=== PATIENT | female | born 1960 | race Caucasian/White ===

== ENCOUNTER 2018-04-06 16:45 | Emergency (ER) | payer OTHER, SELFPAY ==
[2018-04-06 17:25] LABS: Clarity Clear (Clear); Glucose, Urine (Dipstick) Negative (Negative); Leukocyte Negative (Negative); Nitrite Negative (Negative); Protein, Urine (Dipstick) Negative (Neg-Trace); Specific Gravity, Urine 1.015 (1.005-1.030); Urobilinogen 0.2 mg/dL (0.2-1.0)
[2018-04-06 17:26] LABS: Bacteria/HPF Rare-Few HPF (None Seen); Bilirubin Negative (Negative); Blood, Urine Trace (Negative); RBC/HPF 0-3 HPF (0-3); Squamous Epithelial 0-3 HPF (0-3); WBC/HPF 0-3 HPF (0-3)
[2018-04-06 17:39] LABS: Amphetamine Not Detected (NotDetected); Barbiturates Screen Not Detected (NotDetected); Benzodiazepine Screen Not Detected (NotDetected); Cocaine Metabolite Screen Not Detected (NotDetected); Medtox Control Line Valid? VALID (VALID); Methadone Not Detected (NotDetected); Methamphetamine Not Detected (NotDetected); Opiate Screen Not Detected (NotDetected); Oxycodone Screen Not Detected (NotDetected); Phencyclidine (PCP) Not Detected (NotDetected); THC/Cannabinoid Screen Detected (NotDetected); Tricyclic Screen Not Detected (NotDetected)
[2018-04-06 17:40] LABS: #Basophils 0.1 thou/uL (0.0-0.2); #Eosinphils 0.4 thou/uL (0.0-0.7); #Lymphocytes 2.3 thou/uL (1.20-3.40); #Monocytes 0.5 thou/uL (0.11-0.59); %Basophils 1.6 % (0.0-1.0); %Eosinophils 5.9 % (0.0-10.0); %Lymphocytes 30.8 % (21.0-51.0); %Monocytes 6.7 % (0.0-10.0); Hemoglobin 14.1 g/dL (12.0-16.0); Mean Corpuscular HGB CONC 33.9 g/dL (32.0-36.0); Mean Corpuscular Volume 88.7 fL (78.0-98.0); Mean Platelet Volume 11.3 fL (7.4-10.4); Platelet Count 265 thou/uL (130-400); RBC Distribution Width 13.3 % (11.5-14.5); White Blood Cell (WBC) Count 7.4 thou/uL (4.8-10.8)
[2018-04-06 17:43] LABS: ALT (SGPT) 18 U/L (8-55); AST (SGOT) 22 U/L (5-34); Albumin 4.4 g/dL (3.5-5.0); Alcohol 283 mg/dL (Less than 10); Alkaline Phosphatase 85 U/L (40-150); Anion Gap 14 mmol/L (10-20); BUN (Urea Nitrogen) 14 mg/dL (9.8-20.1); Bilirubin, Total Less than 0.2 mg/dL (0.2-1.2); Calc. Creatinine Clearance 0 mL/min (70-130); Calcium 9.8 mg/dL (7.8-10.44); Carbon Dioxide 30 mmol/L (22-29); Chloride 108 mmol/L (98-107); Estimated GFR-MDRD 86; Glucose 103 mg/dL (70-105); Protein, Total 7.4 g/dL (6.0-8.3); Sodium 148 mmol/L (136-145)
--- NOTE | 2018-04-06 23:03 | CT ---
CT OF THE BRAIN WITHOUT CONTRAST 04/06/[address] was performed following trauma. Comparison is made with a 10/22/13 study. The ventricles are normal in size with no shift. No intracranial bleeding or extra-axial hematoma was seen. There is probably a small lacunar infarct or two in the basal ganglia bilaterally. No acute st roke or edema was seen. On scan 10, there is a rounded density inside the inner table of the left frontal bone just above the orbit. This is most likely volume averaging with the bone below. A small meningioma seems less likel y. While this was not a spiral scan, so the coronal reconstruction done is of very limited quality. T here was nothing on it to suggest a small mass in this location. This area is not evident on the prio r study, but the scan slices were not in the same spot. IMPRESSION: 1. No acute traumatic findings. 2. Mild chronic ischemic changes including a few tiny lacunar infarcts in the basal ganglia. 3. Small rounded density just above the left orbit that is most likely volume averaging. It woul d be unlikely that this could be a meningioma, though other images would be needed to be sure. I feel pretty strongly that this is most likely volume averaging. If one wanted to followup, you could do a n MRI or another CT in six to 12 months from now. Findings discussed with Dr. Weems at 1745 on 04/06/18. POS: HOME
--- NOTE | 2018-04-06 23:15 | CT ---
CT CERVICAL SPINE 04/06/[address] of the cervical spine was performed following trauma. Axial slices were acquired, then dulce nal and sagittal reconstructions were done. No fracture, dislocation, or acute bony change was seen. The soft tissues are normal in thickness and the C1 to dens distance is normal. There is disc space narrowing at all levels from C3 and below. Fi ndings by level follow: C1-C2: Unremarkable. C2-C3: Unremarkable. C3-C4: Bilateral facet arthritis with moderate right and severe left foraminal narrowing due to osteo phytes. C4-C5: Severe bilateral foraminal narrowing due to osteophytes. C5-C6: Moderate to severe bilateral foraminal narrowing. C6-C7: Some concentric disc osteophyte complex is seen posteriorly. There is moderate bilateral ariel inal narrowing. C7-T1: No acute findings. T1-T2: No acute findings. IMPRESSION: No acute cervical findings. Severe degenerative changes as noted. POS: HOME
== END 2018-04-06 18:01 | disposition home or self-care (01) ==
LOC: BURERS 16:45
DX: Z04.1 Encounter for examination and observation following transport accident (principal); F10.129 Alcohol abuse with intoxication, unspecified; F12.10 Cannabis abuse, uncomplicated; Z79.899 Other long term (current) drug therapy; V49.9XXA Car occupant (driver) (passenger) injured in unspecified traffic accident, initial encounter
CPT/HCPCS: 36415; 70450; 72125; 80053; 80306; 80307; 81003; 81015; 85025

== ENCOUNTER 2018-10-10 22:03 | Emergency (ER) | payer OTHER, SELFPAY ==
[2018-10-10] MEDS ORDERED: Lidocaine 2% PF 5 ML VIAL ONE ×2 (22:24→23:24)
[2018-10-10] MEDS ORDERED: cefTRIAXone\\ROCEPHIN 1 GM VIAL ONE (23:23)
== END 2018-10-10 23:52 | disposition home or self-care (01) ==
LOC: BURERS 22:03
DX: S61.211A Laceration without foreign body of left index finger without damage to nail, initial encounter (principal); W45.8XXA Other foreign body or object entering through skin, initial encounter
CPT/HCPCS: 12042; 96372; J0696; J2001

== ENCOUNTER 2022-07-25 20:04 | Inpatient (IN) | payer OTHER ==
[2022-07-25] MEDS ORDERED: Ondansetron PF 4 MG/2 ML Vial ONE (20:36)
[2022-07-25] MEDS ORDERED: Ketorolac Tromethamine 30 MG/ML VIAL ONE (20:36)
[2022-07-25 20:59] LABS: #Basophils 0.1 thou/uL (0.0-0.2); #Eosinphils 0.4 thou/uL (0.0-0.7); #Lymphocytes 0.7 thou/uL (1.20-3.40); #Monocytes 0.4 thou/uL (0.11-0.59); #Neutrophils 13.3 thou/uL (1.40-6.50); %Basophils 0.4 % (0.0-1.0); %Lymphocytes 4.4 % (21.0-51.0); %Monocytes 2.9 % (0.0-10.0); %Neutrophils 89.3 % (42.0-75.0); Hemoglobin 13.3 g/dL (12.0-16.0); Mean Corpuscular HGB CONC 32.1 g/dL (32.0-36.0); Mean Corpuscular Hemoglobin 27.8 pg (27.0-31.0); Mean Corpuscular Volume 86.7 fl (78.0-98.0); Mean Platelet Volume 8.9 fL (7.4-10.4); Platelet Count 303 10x3/uL (130-400); RBC Distribution Width 12.8 % (11.5-14.5); Red Blood Cell (RBC) Count 4.79 mill/uL (4.20-5.40); White Blood Cell (WBC) Count 14.9 10x3/uL (4.8-10.8)
[2022-07-25 21:18] LABS: ALT (SGPT) 31 U/L (8-55); AST (SGOT) 19 U/L (5-34); Alcohol Less than 10 mg/dL (Less than 10); Alkaline Phosphatase 78 U/L (40-110); Anion Gap 18 mmol/L (10-20); BUN (Urea Nitrogen) 11 mg/dL (9.8-20.1); Bilirubin, Total 0.6 mg/dL (0.2-1.2); CRP (Inflammatory) 8.26 mg/dL (= or < 0.5); Calc. Creatinine Clearance 0 mL/min (70-130); Calcium 9.9 mg/dL (7.8-10.44); Carbon Dioxide 20 mmol/L (23-31); Chloride 102 mmol/L (98-107); Estimated GFR 100; Globulin 3.2 g/dL (2.4-3.5); Glucose 98 mg/dL (80-115); Potassium 3.1 mmol/L (3.5-5.1); Protein, Total 7.2 g/dL (5.8-8.1); Sodium 137 mmol/L (136-145)
[2022-07-25 21:19] LABS: Magnesium 1.7 mg/dL (1.6-2.6)
[2022-07-25] MEDS ORDERED: Potassium Bicarbonate/Cit Ac 20 MEQ TAB PO SCH (22:00)
[2022-07-25] MEDS ORDERED: Ipratropium/Albuterol 3 ML NEB ONE (22:18)
[2022-07-25 22:30] LABS: Bilirubin Small (Negative); Blood, Urine Moderate (Negative); Clarity Clear (Clear); Glucose, Urine (Dipstick) Negative (Negative); Ketone, Urine > or equal to 80 mg/dL (Negative); Leukocyte Small (Negative); Nitrite Negative (Negative); Protein, Urine (Dipstick) 100 mg/dL (Neg-Trace); Urobilinogen 0.2 mg/dL (Less than 2)
[2022-07-25 22:31] LABS: Bacteria/HPF 1+ HPF (None Seen); Mucous/LPF 1+ LPF (<2+); Squamous Epithelial 0-3 HPF (0-3)
[2022-07-25 22:34] LABS: Lipase Less than 4 U/L (8-78)
[2022-07-25 22:36] LABS: Amphetamine Not Detected (NotDetected); Barbiturates Screen Not Detected (NotDetected); Benzodiazepine Screen Not Detected (NotDetected); Cocaine Metabolite Screen Not Detected (NotDetected); Methadone Not Detected (NotDetected); Methamphetamine Not Detected (NotDetected); Opiate Screen Detected (NotDetected); Oxycodone Screen Not Detected (NotDetected); Phencyclidine (PCP) Not Detected (NotDetected); THC/Cannabinoid Screen Detected (NotDetected); Tricyclic Screen Not Detected (NotDetected)
[2022-07-25 22:37] LABS: Medtox Control Line Valid? VALID (VALID)
[2022-07-25] MEDS ORDERED: Azithromycin 500 MG VIAL ONE (23:22)
[2022-07-25 23:23] LABS: SARS-CoV-2 NAA Rapid Test Not Detected (NotDetected)
[2022-07-26 00:40] VITALS: BMI 29.2
[2022-07-26] MEDS ORDERED: Ipratropium/Albuterol 3 ML NEB NEB PRN (02:50)
[2022-07-26] MEDS ORDERED: Ondansetron PF 4 MG/2 ML Vial IVP PRN (03:00)
[2022-07-26] MEDS ORDERED: Ondansetron ODT 4 MG TAB SL PRN (03:00)
[2022-07-26] MEDS ORDERED: Acetaminophen 325 MG TAB PO PRN (03:00)
[2022-07-26] MEDS: NS 0.9% w/ 20 MEQ KCL 1,000 ML IV SCH ×2 (03:15→11:17)
[2022-07-26] MEDS: cloNIDine 0.1 MG TAB PO SCH ×2 (10:20→21:33)
[2022-07-26] MEDS: Losartan Potassium 50 MG TAB PO SCH (10:24)
[2022-07-26] MEDS: PARoxetine 20 MG TAB PO SCH (10:24)
[2022-07-26] MEDS: Multivitamin W/ Minerals 1 TAB PO SCH (10:24)
[2022-07-26] MEDS: Ipratropium/Albuterol 3 ML NEB NEB SCH ×4 (16:14→23:18)
[2022-07-26] MEDS: Rosuvastatin 10 MG TAB PO SCH (21:33)
[2022-07-27 05:08] LABS: White Blood Cell (WBC) Count 7.6 10x3/uL (4.8-10.8)
[2022-07-27 05:15] LABS: Potassium 3.8 mmol/L (3.5-5.1)
[2022-07-27] MEDS: Ipratropium/Albuterol 3 ML NEB NEB SCH ×5 (06:19→23:12)
[2022-07-27] MEDS ORDERED: Ondansetron ODT 4 MG TAB PO PRN (10:40)
[2022-07-27] MEDS: PARoxetine 20 MG TAB PO SCH (12:18)
[2022-07-27] MEDS: cloNIDine 0.1 MG TAB PO SCH ×2 (12:18→20:46)
[2022-07-27] MEDS: Multivitamin W/ Minerals 1 TAB PO SCH (12:19)
[2022-07-27] MEDS: Losartan Potassium 50 MG TAB PO SCH (12:19)
[2022-07-27] MEDS: Rosuvastatin 10 MG TAB PO SCH (20:47)
[2022-07-28] MEDS: Ipratropium/Albuterol 3 ML NEB NEB SCH ×3 (06:07→15:27)
[2022-07-28] MEDS: Losartan Potassium 50 MG TAB PO SCH (08:42)
[2022-07-28] MEDS: PARoxetine 20 MG TAB PO SCH (08:43)
[2022-07-28] MEDS: Multivitamin W/ Minerals 1 TAB PO SCH (08:43)
[2022-07-28] MEDS: cloNIDine 0.1 MG TAB PO SCH (08:43)
[2022-07-28] MEDS ORDERED: Senokot 8.6 MG TAB PO SCH (12:15)
[2022-07-28 14:24] VITALS: BP 181/93; TEMP 98
== END 2022-07-28 17:50 | disposition home or self-care (01) | DRG 193 ==
LOC: BURERS 20:04 → BURMED 23:00
PROVIDERS: ADMIT Family Medicine; ATTEND Family Medicine
DX: J18.9 Pneumonia, unspecified organism (principal); J96.01 Acute respiratory failure with hypoxia; N39.0 Urinary tract infection, site not specified; N20.0 Calculus of kidney; E86.0 Dehydration; Z20.822 Contact with and (suspected) exposure to COVID-19; E87.6 Hypokalemia; I10 Essential (primary) hypertension; F41.9 Anxiety disorder, unspecified; F32.A Depression, unspecified; Z79.899 Other long term (current) drug therapy; Z88.0 Allergy status to penicillin; M25.512 Pain in left shoulder
CPT/HCPCS: 36415; 71045; 74176; 80053; 80306; 80307; 81003; 81015; 83690; 83735; 84132; 85025; 85048; 86140; 87040; 96365; 96375; J0456; J1885; J1956; J2405; J3480; J7620; Q0162; U0002

== ENCOUNTER 2022-09-04 14:29 | Outpatient (CLI) | payer OTHER | END 2022-09-04 14:30 | disposition home or self-care (01) | LOC: BURRAD 14:29 | PROVIDERS: ATTEND Family Medicine | DX: J18.9 Pneumonia, unspecified organism (principal) | CPT/HCPCS: 71046 ==

== ENCOUNTER 2022-12-22 13:14 | Emergency (ER) | payer OTHER ==
[2022-12-22] MEDS ORDERED: Ondansetron PF 4 MG/2 ML Vial ONE (13:36)
[2022-12-22 13:40] LABS: #Eosinphils 0.1 thou/uL (0.0-0.7); #Lymphocytes 1.3 thou/uL (1.20-3.40); #Monocytes 0.3 thou/uL (0.11-0.59); #Neutrophils 5.4 thou/uL (1.40-6.50); %Basophils 0.5 % (0.0-1.0); %Lymphocytes 18.8 % (21.0-51.0); %Monocytes 3.7 % (0.0-10.0); Hematocrit 43.7 % (36.0-47.0); Mean Corpuscular HGB CONC 31.9 g/dL (32.0-36.0); Mean Corpuscular Hemoglobin 27.6 pg (27.0-31.0); Mean Corpuscular Volume 86.5 fl (78.0-98.0); Platelet Count 264 10x3/uL (130-400); RBC Distribution Width 12.6 % (11.5-14.5); Red Blood Cell (RBC) Count 5.05 mill/uL (4.20-5.40); White Blood Cell (WBC) Count 7.2 10x3/uL (4.8-10.8)
[2022-12-22 13:58] LABS: ALT (SGPT) 57 U/L (8-55); AST (SGOT) 51 U/L (5-34); Albumin 4.7 g/dL (3.4-4.8); Alkaline Phosphatase 83 U/L (40-110); Anion Gap 19 mmol/L (10-20); BUN (Urea Nitrogen) 12 mg/dL (9.8-20.1); Bilirubin, Total 0.5 mg/dL (0.2-1.2); Calc. Creatinine Clearance 0 mL/min (70-130); Calcium 10.5 mg/dL (7.8-10.44); Carbon Dioxide 24 mmol/L (23-31); Chloride 104 mmol/L (98-107); Estimated GFR 98; Globulin 3.3 g/dL (2.4-3.5); Glucose 126 mg/dL (80-115); Lipase 7 U/L (8-78); Potassium 3.4 mmol/L (3.5-5.1); Sodium 144 mmol/L (136-145)
[2022-12-22 14:54] LABS: Bilirubin Negative (Negative); Blood, Urine Moderate (Negative); Clarity Cloudy (Clear); Glucose, Urine (Dipstick) Negative (Negative); Ketone, Urine 15 mg/dL (Negative); Leukocyte Small (Negative); Nitrite Negative (Negative); Protein, Urine (Dipstick) 100 mg/dL (Neg-Trace); Specific Gravity, Urine 1.015 (1.005-1.030); Urobilinogen 0.2 mg/dL (Less than 2); pH, Urine 8.5 (5.0-9.0)
[2022-12-22 15:08] LABS: Bacteria/HPF 2+ HPF (None Seen); CAUTI Indications for Culture Dysuria,urgency,freq; RBC/HPF 21-50 HPF (0-3); Squamous Epithelial 0-3 HPF (0-3); WBC/HPF 0-3 HPF (0-3)
[2022-12-22 15:10] LABS: Urine Culture Reflex No No
[2022-12-22 15:22] LABS: SARS-CoV-2 NAA Rapid Test Not Detected (NotDetected)
== END 2022-12-22 16:33 | disposition home or self-care (01) ==
LOC: BURERS 13:14
DX: B34.9 Viral infection, unspecified (principal); R11.2 Nausea with vomiting, unspecified; I10 Essential (primary) hypertension; F17.290 Nicotine dependence, other tobacco product, uncomplicated; E78.5 Hyperlipidemia, unspecified; Z20.822 Contact with and (suspected) exposure to COVID-19; Z79.899 Other long term (current) drug therapy
CPT/HCPCS: 80053; 81001; 83605; 83690; 85025; 93005; 96361; 96374; J2405

== ENCOUNTER 2024-02-01 10:01 | Emergency (ER) | payer OTHER ==
[2024-02-01] MEDS ORDERED: Ondansetron PF 4 MG/2 ML Vial ONE (10:32)
[2024-02-01 10:36] LABS: #Basophils 0.1 thou/uL (0.0-0.2); #Eosinphils 0.4 thou/uL (0.0-0.7); #Lymphocytes 1.8 thou/uL (1.20-3.40); #Monocytes 0.5 thou/uL (0.11-0.59); #Neutrophils 3.4 thou/uL (1.40-6.50); %Basophils 1.4 % (0.0-1.0); %Eosinophils 5.8 % (0.0-10.0); %Lymphocytes 29.1 % (21.0-51.0); %Monocytes 8.1 % (0.0-10.0); %Neutrophils 55.6 % (42.0-75.0); Hematocrit 41.4 % (36.0-47.0); Hemoglobin 12.8 g/dL (12.0-16.0); Mean Corpuscular HGB CONC 30.8 g/dL (32.0-36.0); Mean Corpuscular Hemoglobin 27.6 pg (27.0-31.0); Mean Corpuscular Volume 89.7 fl (78.0-98.0); Mean Platelet Volume 10.2 fL (7.4-10.4); Platelet Count 289 10x3/uL (130-400); RBC Distribution Width 12.2 % (11.5-14.5); Red Blood Cell (RBC) Count 4.62 mill/uL (4.20-5.40); White Blood Cell (WBC) Count 6.1 10x3/uL (4.8-10.8)
[2024-02-01 10:53] LABS: ALT (SGPT) 46 U/L (8-55); AST (SGOT) 43 U/L (5-34); Alkaline Phosphatase 89 U/L (40-110); Anion Gap 17 mmol/L (10-20); BUN (Urea Nitrogen) 15 mg/dL (9.8-20.1); Bilirubin, Total 0.5 mg/dL (0.2-1.2); Calc. Creatinine Clearance 0 mL/min (70-130); Carbon Dioxide 23 mmol/L (23-31); Chloride 106 mmol/L (98-107); Estimated GFR 98; Globulin 3.6 g/dL (2.4-3.5); Glucose 84 mg/dL (80-115); Lipase 6 U/L (8-78); Potassium 3.4 mmol/L (3.5-5.1); Protein, Total 7.6 g/dL (5.8-8.1); Sodium 143 mmol/L (136-145)
[2024-02-01 11:40] LABS: Bilirubin Negative (Negative); Blood, Urine Moderate (Negative); Glucose, Urine (Dipstick) Negative (Negative); Ketone, Urine 40 mg/dL (Negative); Leukocyte Large (Negative); Nitrite Positive (Negative); Protein, Urine (Dipstick) 100 mg/dL (Neg-Trace); Specific Gravity, Urine 1.025 (1.005-1.030); Urobilinogen 0.2 mg/dL (Less than 2); pH, Urine 6.5 (5.0-9.0)
[2024-02-01 11:49] LABS: Clarity Cloudy (Clear)
[2024-02-01 11:50] LABS: Bacteria/HPF 2+ HPF (None Seen); CAUTI Indications for Culture Pelvic or flank pain; Squamous Epithelial 0-3 HPF (0-3); WBC/HPF Greater Than 50 HPF (0-3)
[2024-02-01 11:51] LABS: Urine Culture Reflex Yes Yes
[2024-02-01] MEDS ORDERED: Nitrofurantoin Monohyd/M-Cryst 100 MG CAP ONE (12:00)
== END 2024-02-01 12:10 | disposition home or self-care (01) ==
LOC: BURERS 10:01
DX: N39.0 Urinary tract infection, site not specified (principal); R11.2 Nausea with vomiting, unspecified; I10 Essential (primary) hypertension; Z86.73 Personal history of transient ischemic attack (TIA), and cerebral infarction without residual deficits
CPT/HCPCS: 36415; 80053; 81001; 83690; 85025; 87077; 87086; 87186; 87428; 96361; 96374; J2405

== ENCOUNTER 2024-02-02 01:01 | Emergency (ER) | payer OTHER ==
[2024-02-02] MEDS ORDERED: Promethazine HCl 25 MG/ML VIAL ONE ×2 (01:47→04:22)
[2024-02-02 01:53] LABS: #Basophils 0.1 thou/uL (0.0-0.2); #Eosinphils 0.2 thou/uL (0.0-0.7); #Lymphocytes 0.6 thou/uL (1.20-3.40); #Monocytes 0.3 thou/uL (0.11-0.59); #Neutrophils 14.1 thou/uL (1.40-6.50); %Basophils 0.5 % (0.0-1.0); %Eosinophils 1.2 % (0.0-10.0); %Lymphocytes 3.9 % (21.0-51.0); %Monocytes 1.8 % (0.0-10.0); %Neutrophils 92.7 % (42.0-75.0); Hematocrit 41.7 % (36.0-47.0); Hemoglobin 12.9 g/dL (12.0-16.0); Mean Corpuscular Hemoglobin 27.8 pg (27.0-31.0); Mean Corpuscular Volume 89.8 fl (78.0-98.0); Mean Platelet Volume 9.4 fL (7.4-10.4); Platelet Count 265 10x3/uL (130-400); RBC Distribution Width 12.5 % (11.5-14.5); Red Blood Cell (RBC) Count 4.64 mill/uL (4.20-5.40); White Blood Cell (WBC) Count 15.2 10x3/uL (4.8-10.8)
[2024-02-02 02:10] LABS: ALT (SGPT) 37 U/L (8-55); AST (SGOT) 29 U/L (5-34); Albumin 3.8 g/dL (3.4-4.8); Anion Gap 19 mmol/L (10-20); BUN (Urea Nitrogen) 10 mg/dL (9.8-20.1); Bilirubin, Total 0.6 mg/dL (0.2-1.2); Calc. Creatinine Clearance 0 mL/min (70-130); Calcium 9.8 mg/dL (7.8-10.44); Carbon Dioxide 19 mmol/L (23-31); Chloride 108 mmol/L (98-107); Estimated GFR 88; Globulin 3.5 g/dL (2.4-3.5); Glucose 136 mg/dL (80-115); Lipase 9 U/L (8-78); Potassium 2.8 mmol/L (3.5-5.1); Protein, Total 7.3 g/dL (5.8-8.1); Sodium 143 mmol/L (136-145)
[2024-02-02 02:12] LABS: Troponin I 0.012 ng/mL (< 0.028)
[2024-02-02 02:16] LABS: Alkaline Phosphatase 85 U/L (40-110)
[2024-02-02] MEDS ORDERED: Potassium Chloride 20 MEQ (100 mL) BAG ONE ×2 (02:46→09:55)
[2024-02-02] MEDS ORDERED: Ciprofloxacin Lactate D5W 400 mg (200 mL) BAG ONE (02:47)
[2024-02-02] MEDS ORDERED: Acetaminophen 500 MG TAB ONE (09:55)
[2024-02-02] MEDS ORDERED: CEFAZOLIN 2 GM VIAL ONE (09:55)
[2024-02-02] MEDS ORDERED: Sodium Chloride 0.9% 100 ML ONE (09:59)
[2024-02-02] MEDS ORDERED: Cefepime 2 GM VIAL ONE (09:59)
[2024-02-02 10:28] LABS: Anion Gap 15 mmol/L (10-20); BUN (Urea Nitrogen) 7 mg/dL (9.8-20.1); Calc. Creatinine Clearance 0 mL/min (70-130); Calcium 9.1 mg/dL (7.8-10.44); Carbon Dioxide 19 mmol/L (23-31); Chloride 108 mmol/L (98-107); Estimated GFR 97; Glucose 108 mg/dL (80-115); Magnesium 1.5 mg/dL (1.6-2.6); Potassium 3.2 mmol/L (3.5-5.1); Sodium 139 mmol/L (136-145)
[2024-02-02] MEDS ORDERED: Magnesium 2 GM/50 ML BAG (IN WATER) ONE (10:34)
[2024-02-02] MEDS ORDERED: Iopamidol 370 76% 100 ML VIAL ONE (15:21)
== END 2024-02-02 13:11 | disposition short-term general hospital (02) ==
LOC: BURERS 01:01
DX: N39.0 Urinary tract infection, site not specified (principal); E87.6 Hypokalemia; R11.2 Nausea with vomiting, unspecified; I10 Essential (primary) hypertension
CPT/HCPCS: 36415; 71045; 74177; 80053; 83605; 83690; 83735; 84484; 85025; 87040; 87428; 96361; 96365; 96366; 96367; 96368; 96375; 96376; J0692; J0744; J2550; J3475; J3480; Q9967

== ENCOUNTER 2024-02-18 20:22 | Emergency (ER) | payer OTHER ==
[2024-02-18] MEDS ORDERED: Ondansetron PF 4 MG/2 ML Vial ONE ×2 (21:25→23:46)
[2024-02-18] MEDS ORDERED: Ketorolac Tromethamine 30 MG (1 mL) VIAL ONE (21:25)
[2024-02-18 21:34] LABS: #Basophils 0.1 thou/uL (0.0-0.2); #Eosinophils 0.6 thou/uL (0.0-0.7); #Lymphocytes 2.1 thou/uL (1.20-3.40); #Monocytes 0.9 thou/uL (0.11-0.59); #Neutrophils 4.9 thou/uL (1.40-6.50); %Basophils 1.6 % (0.0-1.0); %Eosinophils 6.4 % (0.0-10.0); %Lymphocytes 24.2 % (21.0-51.0); %Monocytes 10.3 % (0.0-10.0); %Neutrophils 57.4 % (42.0-75.0); Mean Corpuscular HGB CONC 32.4 g/dL (32.0-36.0); Mean Corpuscular Hemoglobin 27.8 pg (27.0-31.0); Mean Corpuscular Volume 85.7 fl (78.0-98.0); Platelet Count 230 10x3/uL (130-400); RBC Distribution Width 11.5 % (11.5-14.5); Red Blood Cell (RBC) Count 4.67 mill/uL (4.20-5.40); White Blood Cell (WBC) Count 8.6 10x3/uL (4.8-10.8)
[2024-02-18 22:33] LABS: ALT (SGPT) 14 U/L (8-55); AST (SGOT) 16 U/L (5-34); Albumin 3.4 g/dL (3.4-4.8); Alkaline Phosphatase 59 U/L (40-110); Anion Gap 16 mmol/L (10-20); BUN (Urea Nitrogen) 18 mg/dL (9.8-20.1); Bilirubin, Total 0.5 mg/dL (0.2-1.2); Calc. Creatinine Clearance 0 mL/min (70-130); Calcium 9.7 mg/dL (7.8-10.44); Carbon Dioxide 22 mmol/L (23-31); Chloride 103 mmol/L (98-107); Estimated GFR 84; Globulin 3.2 g/dL (2.4-3.5); Glucose 77 mg/dL (80-115); Lipase 11 U/L (8-78); Protein, Total 6.6 g/dL (5.8-8.1); Sodium 138 mmol/L (136-145)
[2024-02-18 22:37] LABS: Bilirubin Moderate (Negative); Blood, Urine Large (Negative); Clarity Cloudy (Clear); Glucose, Urine (Dipstick) Negative (Negative); Ketone, Urine 40 mg/dL (Negative); Leukocyte Small (Negative); Nitrite Negative (Negative); Protein, Urine (Dipstick) > or equal to 300 mg/dL (Neg-Trace); Urobilinogen 0.2 mg/dL (Less than 2)
[2024-02-18 22:39] LABS: Specific Gravity, Urine 1.022 (1.002-1.036)
[2024-02-18] MEDS ORDERED: Morphine 10 MG/ML VIAL ONE (22:46)
[2024-02-18 22:49] LABS: Bacteria/HPF 1+ HPF (None Seen); CAUTI Indications for Culture Pelvic or flank pain; RBC/HPF 21-50 HPF (0-3); WBC/HPF 21-50 HPF (0-3)
[2024-02-18 22:51] LABS: Urine Culture Reflex Yes Yes
[2024-02-18] MEDS ORDERED: Potassium Bicarbonate/Cit Ac 20 MEQ TAB ONE ×2 (23:15→23:16)
== END 2024-02-19 00:07 | disposition home or self-care (01) ==
LOC: BURERS 20:22
DX: N20.0 Calculus of kidney (principal); R11.2 Nausea with vomiting, unspecified; I10 Essential (primary) hypertension; Z55.6 Problems related to health literacy; Z86.73 Personal history of transient ischemic attack (TIA), and cerebral infarction without residual deficits; Z96.0 Presence of urogenital implants
CPT/HCPCS: 74176; 80053; 81001; 83690; 85025; 87086; 96361; 96374; 96375; 96376; J1885; J2270; J2405

== ENCOUNTER 2025-03-04 08:42 | Emergency (ER) | payer OTHER ==
[2025-03-04] MEDS ORDERED: Boostrix 0.5 ML (Tdap) VIAL (>/=7 yrs of age) ONE (09:15)
[2025-03-04] MEDS ORDERED: Lidocaine 1% (PF) 30 ML VIAL ONE (10:34)
== END 2025-03-04 12:01 | disposition home or self-care (01) ==
LOC: BURERS 08:42
DX: S61.217A Laceration without foreign body of left little finger without damage to nail, initial encounter (principal); I10 Essential (primary) hypertension; E78.5 Hyperlipidemia, unspecified; Z23 Encounter for immunization; Z79.899 Other long term (current) drug therapy; Z86.73 Personal history of transient ischemic attack (TIA), and cerebral infarction without residual deficits; W06.XXXA Fall from bed, initial encounter
CPT/HCPCS: 12002; 90471; 90715; J2003